=== PATIENT | female | born 1980 | race Caucasian/White ===

== ENCOUNTER 2019-11-09 13:35 | Emergency (ER) | payer OTHER, SELFPAY ==
--- NOTE | 2019-11-09 13:45 | ED.GENADULT ---
HPI - General Adult General Chief complaint: Wound/Laceration Stated complaint: lac Time Seen by Provider: 11/09/19 13:36 Source: patient Mode of arrival: ambulatory Limitations: no limitations History of Present Illness HPI narrative: Patient is a 39-year-old female who presents with left index finger laceration that occurred just prior to arrival using a knife patient on arrival is in the room in no distress notes mild aching pain worse with palpation denies radicular symptoms or paresthesias notes that her tetanus is up-to-date Related Data Home Medications Medication Instructions Recorded Confirmed No Home Medications 11/09/19 11/09/19 Allergies Allergy/AdvReac Type Severity Reaction Status Date / Time No Known Allergies Allergy Verified 11/09/19 13:36 [facility] Surgical History Surgical History H/O section Social History Social History (Updated 11/09/19 @ 13:46 by Martin Dodson PA-C) Smoking status: Current every day smoker Gender identity (if verbalized by the patient): Female Exam Narrative: Exam Narrative: GENERAL: Well-appearing, well-nourished, and in no acute distress. HEAD: Normocephalic, atraumatic. EYES: PERRLA and EOMI. ENT: Nares clear, no rhinorrhea or epistaxis. Mucous membranes moist. EXTREMITIES: Normal range of motion. No edema. SKIN: Warm, dry, no rash. 1 cm linear laceration distal tip right index finger palmar surface NEURO: No focal deficits. Alert and oriented x3. Neurovascularly intact PSYCH: Normal mood and affect. Course Course Emergency Course: Patient in the room in no distress aware of case findings treatment plan and diagnosis agreeing to follow-up as directed or to return if symptoms worsen or concerns Procedures Laceration Laceration 1: Date: 11/09/19 Time: 15:03 Site: upper extremity Side (If applicable): left ====== Skin Level ====== ====== Subcutaneous Layer ====== ====== Muscle Layer ====== ====== Tendon Layer ====== Medical Decision Making MDM Narrative Medical decision making narrative: Patients injury or pain is consistent with musculoskeletal etiology. No signs of neurological or vascular compromise on exam. Compartments and tisues are soft without signs of compartment syndrome. Pain is felt appropriate for further evaluation on an outpatient basis. Discharge Plan Discharge Clinical Impression: Laceration Patient Disposition: Home, Self-Care Condition: Stable Instructions: Antibiotic Form, Laceration (ED) Additional Instructions: Keep wound clean and dry. Do not soak, take baths, or swim until wound is completely healed. If any signs of infection such as redness, swelling, increasing pain, drainage of purulent discharge, streaks up your extremity develop, seek medical attention immediately. Followup with your primary care provider in [7] days for suture removal. [] Prescriptions: No Action No Home Medications RF: 0 Follow-up/Referrals: Ania,Nando Young MD [Primary Care Provider] -
[2019-11-09 15:05] VITALS: BP 115/70; PULSE 64; RESP 14; O2SAT 98
== END 2019-11-09 15:05 | disposition home or self-care (01) ==
LOC: ANHED 14:03
PROVIDERS: Emergency Provider Emergency Medicine; PCP Internal Medicine
DX: S61.211A Laceration without foreign body of left index finger without damage to nail, initial encounter (principal); F17.200 Nicotine dependence, unspecified, uncomplicated; W26.0XXA Contact with knife, initial encounter
CPT/HCPCS: 12001; 99282

== ENCOUNTER 2022-01-20 11:00 | Outpatient (RCR) | payer BC, SELFPAY ==
--- NOTE | 2021-12-15 14:58 | PTOPEVAL ---
PHYSICAL THERAPY INITIAL EVALUATION. Thank you for referring Ruma Bolaños to [facility].? The patient is scheduled to be seen for therapy? 2x/week for 5 weeks. Please review, sign, date and return this plan of care YEE. I agree with and certify that the following plan of care is medically necessary. Referring Physician Date Attending Provider: PHYSICIAN NOT ON STAFF *PT Outpatient Evaluation Start: 12/15/21 Evaluation Information Diagnosis Stroke Onset 11/27/21 Subjective Information Pt states she had a stroke on Query Text:As Reported By Patient/ 11/27/21, and was transferred Family from the hospital on 12/01/21 to inpatient rehab for about of week, she got discharged from there at 12/07/21. She states she thought she was doing well, now being at home for a week she can feel her deficits. She has an 8 year old son at home with which she would love to get back to running and playing with. Pain Assessment Pain Score 0: Self Report Upper Extremity Range of Motion General Upper Extremity Range of Motion WFL/Left,WFL/Right Lower Extremity Range of Motion General Lower Extremity Range of Motion WFL/Left,WFL/Right Lower Extremity Muscle Strength Testing General Lower Extremity Strength WFL/Left,WFL/Right Gross Lower Extremity Strength B LE grossly 4+/5 R glute med 4/5 R glute ext 4/5 L single leg sit<>stand 11 in 30s R single leg sit<>stand - unable to rise L SLS - 20s - test stopped R SLS - 4s Balance Assessment Camargo Balance Assessment [place] Balance Evaluation Total Score (56 54/56 5 Time Sit to Stand Time in Seconds 11 5 Time Sit to Stand Comments 11s without the use of UEs Dynamic Gait Index Total Score () Gait Assessment Gait Pattern Observed Uneven Teri Other Gait Observations equal step length and stride length, increase out toeing on the R. Decreased stance phase on the R, with a hardened heel strike on the L. 2 Minute Walk Total Distance Walked (feet) 460 2 Minute Walk Gait Speed Score (feet/sec) 3.83 PT Clinical Summary Ruma is an active 41 y/o female who presents to therapy today for her initial
--- NOTE | 2021-12-22 11:38 | OTOPEVAL ---
OCCUPATIONAL THERAPY INITIAL EVALUATION REPORT 12/22/21 Thank you for referring Ruma Bolaños to [facility].? The patient is scheduled to be seen for occupational therapy? 1x/week for 4 weeks. Please review, sign, date and return this plan of care YEE. I agree with and certify that the following plan of care is medically necessary. Referring Physician Date Referring Provider: Aimee Dowell MD *OT Outpatient Evaluation Start: 12/22/21 10:24 Therapy Assessment Status Assessment Status Assessment Status Evaluation Outpatient Past Medical History Past Medical History Source of Past Medical History Patient Neurological History Hx Cerebrovascular Accident (CVA) Yes: 11/27/21 Cardiovascular History Hx Cardiac Disorders No Significant History Respiratory History Hx Respiratory Disorders No Significant History Gastrointestinal History Hx Gastrointestinal Disorders No Significant History Musculoskeletal History Hx Musculoskeletal Disorders No Significant History Endocrine History Hx Endocrine Disorders No Significant History Evaluation Information Problem Diagnosis Left basal ganglia CVA Onset 11/27/21 Subjective Information Pt states she had a stroke on Query Text:As Reported By Patient/ 11/27/21, and was transferred Family from the hospital on 12/01/21 to inpatient rehab for about of week, she got discharged from there at 12/07/21. She states she thought she was doing well, now being at home for a week she can feel her deficits. Reports difficulties with the right UE to write, don mascara, wash her hair, brushing teeth, and cooking (stirring, chopping, etc.). 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
--- NOTE | 2022-01-11 13:12 | OTOPEVAL ---
OCCUPATIONAL THERAPY RE-EVALUATION AND DISCHARGE SUMMARY 01/11/22 Patient presents for OT re-evaluation following 3 outpatient treatment sessions for residual right UE weakness and decreased fine motor coordination. At this time the patient's gross strength and fine motor coordination have returned to normal limits. She is able to use her right, dominant UE for all ADL and household tasks without difficulty. Discharging skilled OT with goals met. Thank you for referring Ruma Bolaños to [facility]. Please review, sign, date and return this D/C Note YEE. I agree with and certify that the following plan of care is medically necessary. Referring Physician Date Referring Provider: Dr. Aimee Dowell Per patient request, please also CC patient's neurologist: Dr. Marcie Glover *OT Outpatient Re-Evaluation Start: 12/22/21 10:24 Diagnosis Left basal ganglia CVA Onset 11/27/21 Subjective Information Patient reports improvements Query Text:As Reported By Patient/ with the right UE. She notes Family that she is functioning at 90 % normal with being able to do her mascara and wash her hair. 95% normal with writing. And 100% normal with brushing teeth and cooking. She is not back to work yet. She sees the neurologist later this month to get released. Pain Assessment Timing of Pain Assessment Timing of Pain Assessment Assessment Self Report Self Report Pain Level 0 Pain Score Pain Score 0: Self Report Upper Extremity Range of Motion General Upper Extremity Range of Motion Reason Not Measured WNL/Left,WNL/Right Upper Extremity Muscle Strength Testing Scapular/Shoulder Bilateral Shoulder Flexion Strength 5 Normal Shoulder Extension Strength 5 Normal Shoulder Abduction Strength 5 Normal Shoulder Adduction Strength 5 Normal Shoulder Strength Comments Shoulder strength returned to normal limits. Elbow/Forearm Right Elbow Flexion Strength 5 Normal Elbow Extension Strength 5 Normal Forearm Pronation Strength 5 Normal Forearm Supination Strength 5 Normal Elbow/Forearm Strength Comments Elbow strength returned to normal limits. Wrist Strength Bilateral Wrist Flexion Strength 5 Normal Wrist Extension Strength 5 Normal Wrist Radial Deviation 5 Normal Wrist Ulnar Deviation 5 Normal Hand Crusher Operator/Pinch Strength Assessment Hand Right Crusher Operator Strength (lbs) 77 Lateral Pinch Strength (lbs) 14.67 Palmar Pinch Strength (lbs) 14.5 Tip Pinch Strength (lbs) 13.33 Sahu
--- NOTE | 2022-01-20 11:47 | PTOPEVAL ---
PHYSICAL THERAPY PROGRESS REPORT AND DISCHARGE SUMMARY. Thank you for referring Ruma Bolaños to [facility].? The patient is to be discharged from skilled physical therapy services at this time. Please review, sign, date and return this plan of care YEE. I agree with and certify that the following plan of care is medically necessary. Referring Physician Date Attending Provider: PHYSICIAN NOT ON STAFF Per patient request, please also CC patient's neurologist: Dr. Marcie Glover Evaluation Information Diagnosis Left basal ganglia CVA Onset 11/27/21 Subjective Information Pt states she is doing really Query Text:As Reported By Patient/ well. 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 She states her biggest weakness is trusting that her body has the strength it needs. Pain Assessment Pain Score 0: Self Report Upper Extremity Range of Motion General Upper Extremity Range of Motion WNL/Left,WNL/Right Lower Extremity Range of Motion General Lower Extremity Range of Motion WFL/Left,WFL/Right Lower Extremity Muscle Strength Testing General Lower Extremity Strength WFL/Left,WFL/Right Gross Lower Extremity Strength B LE grossly 5/5 R glute med 4+/5 R glute ext 4+/5 L single leg sit<>stand 14 in 30s R single leg sit<>stand - 6 complete reps and 5 partial reps in 30s L SLS - 30s - test stopped R SLS - 30s - test stopped Balance Assessment Cam[place] Balance Assessment [place] Balance Evaluation Total Score (/56 56/56 5 Time Sit to Stand Time in Seconds 10 5 Time Sit to Stand Comments Initially: 11s without the use Query Text:Normative Data: If Greater of UEs Than 15 Seconds, 74% Increase Risk for 01/20/22: 10s without the use Recurrent Falls of UEs Dynamic Gait Index Total Score () Gait Assessment Gait Pattern Observed Uneven Teri Other Gait Observations equal step length and stride length, out toeing equal bilaterally. Mild increased hip flexion on the R compared to L 2 Minute Walk Total Distance Walked (feet) 605 2 Minute Walk Gait Speed Score (feet/ 5.04 Number of Breaks Required 0 2 Minute Walk Test Comments Initially 460ft (3.83ft/se
== END 2022-01-20 16:09 | disposition home or self-care (01) ==
LOC: ANHPT 11:00
PROVIDERS: PCP Internal Medicine
DX: I69.898 Other sequelae of other cerebrovascular disease (principal); R26.89 Other abnormalities of gait and mobility
CPT/HCPCS: 97110; 97112; 97161; 97165; 97530

== ENCOUNTER 2024-05-22 08:05 | Outpatient (CLI) | payer BC, SELFPAY ==
--- NOTE | ~2024-05-22 | MM_ITS ---
EXAMINATION: MM screening [facility] w [place] HISTORY: Screening mammogram TECHNIQUE: Craniocaudal and mediolateral oblique 3-D tomosynthesis images were obtained and synthetic 2-D images were generated. CAD analysis was submitted and interpreted. COMPARISON: No prior mammogram is available for comparison at this institution. BREAST PARENCHYMAL COMPOSITION:Dense: The breasts are heterogeneously dense, which may obscure small masses. FINDINGS: No suspicious mass, calcification, or architectural distortion are identified in either dylon ast to suggest malignancy. There has been no suspicious interval change. IMPRESSION: No mammographic evidence of malignancy. Recommend routine screening mammography in one year. BI-RADS Category 1: Negative Reviewed, dictated and finalized at location .
== END 2024-05-22 08:06 | disposition home or self-care (01) ==
LOC: ANHIMG 08:08
PROVIDERS: PCP Internal Medicine; Visit Provider Student in an Organized Health Care Education/Training Program
DX: Z12.31 Encounter for screening mammogram for malignant neoplasm of breast (principal)
CPT/HCPCS: 77063; 77067